=== PATIENT | male | born 1960 | race Caucasian/White ===

== ENCOUNTER 2023-01-01 09:22 | Day surgery (SDC) | payer OTHER, MEDICAID, SELFPAY ==
--- NOTE | 2023-01-01 | PATH_ITS ---
[facility] Accession Number: [id number] No. of containers..04 Tissue . 01 Material submitted: . PART A: colon - CECAL POLYP PART B: colon - TRANSVERSE COLON POLYP X3 PART C: colon - SIGMOID COLON POLYP X2 PART D: rectum - RECTAL POLYP . 01 Diagnosis: A. Cecum, Polypectomy: Colonic mucosa with no diagnostic abnormality, consistent with polypoid redundancy. Negative for dysplasia and malignancy. . B. Transverse Colon, Polypectomy x3: Tubular adenoma in 3 of 4 fragments. . C. Sigmoid Colon, Polypectomy x2: Tubular adenoma. Benign lymphoid aggregate. . D. Rectum, Polypectomy: Hyperplastic polyp. [facility] 01/06/2023 1611 Local . 01 Electronically signed: . Sandy Sorto MD, Pathologist NPI- [id number] . 01 Gross description: . Part A: CECAL POLYP: Received in formalin is 1 fragment(s) of hudson, soft tissue measuring 0.2 x 0.1 x 0.1 cm submitted entirely in 1 cassette(s) Part B: TRANSVERSE COLON POLYP X3: Received in formalin are 4 fragment(s) of hudson, soft tissue measuring 0.4 x 0.1 x 0.1 cm to 0.3 x 0.1 x 0.1 cm submitted entirely in 1 cassette(s) Part C: SIGMOID COLON POLYP X2: Received in formalin are 2 fragment(s) of hudson, soft tissue measuring 0.4 x 0.2 x 0.2 cm to 0.3 x 0.2 x 0.2 cm submitted entirely in 1 cassette(s) Part D: RECTAL POLYP: Received in formalin is 1 fragment(s) of hudson, soft tissue measuring 0.1 x 0.1 x 0.1 cm submitted entirely in 1 cassette(s) /CPE 01/02/2023 0620 Local . 01 Pathologist provided ICD-10: D12.3, D12.5, K63.5, K62.1 . 01 CPT . 182561, 238453, 739483, [id number] Specimen Comment: A courtesy copy of this report has been sent to [phone] Performed at: 01 [facility] [address] [place] [address], [place], [place] [id number] MD David Ewing MD Phone: [phone]
[2023-01-01 09:36] VITALS: BMI 25.7
[2023-01-01 09:40] VITALS: BP 149/96; PULSE 80; RESP 20; TEMP 36.7; O2SAT 97
[2023-01-01] MEDS: LACTATED RINGERS 1,000 ML 42 ML IV (09:45)
--- NOTE | 2023-01-01 10:11 | PM.HP.1 ---
History of Present Illness History of Present Illness Chief complaint: Colonoscopy Narrative: Tyler is a 62-year-old man here for colonoscopy. He has never had 1 before. No family history of colon cancer. He had a fit test that was negative about 3 years ago. Patient History Medical History (Updated 01/01/23 @ 10:11 by Cesar Ballard MD) Anxiety Family & Social History Social History: household members spouse Tobacco & Substance use: Smoking Status Never smoker alcohol intake current alcohol intake frequency 0-2 drinks per day Substance Use Type does not use Meds Home Medications and Allergies Home Medications Medication Instructions Recorded Confirmed Type peg 3350-electrolytes 236 240 ml PO Q10M #4,000 mL 12/01/22 Rx gram-22.74 gram-6.74 gram-5.86 gram solution (Golytely) sertraline 25 mg tablet 25 mg PO DAILY 01/01/23 01/01/23 History Allergies Allergy/AdvReac Type Severity Reaction Status Date / Time No Known Drug Allergies Allergy Verified 01/01/23 09:35 Exam Vital Signs (past 8 hours): - 01/01/23 09:40 Temperature 98.0 F Pulse Rate 80 Respiratory Rate 20 Blood Pressure 149/96 H Pulse Oximetry 97 Oxygen Delivery Method Room Air Oxygen Delivery Method Room Air Const General: healthy appearing Assessment & Plan Assessment and plan (1) Colon cancer screening: Status: Acute Plan Tyler is a 62-year-old man who is here for colonoscopy. We reviewed the risks and benefits and he would like to proceed. Time Spent With Patient Critical Care time: I spent a total of [] minutes of critical care time on this patient's care today; this time is exclusive of procedural time.
--- NOTE | 2023-01-01 10:50 | PM.OP.COLON ---
Operative Date/Time/Diagnoses Date of procedure: 01/01/23 Time of procedure: 10:50 Pre-op diagnosis: Colon cancer screening Post-op diagnosis: same Procedure & Clinicians Study performed: Colonoscopy Same procedure as scheduled: Yes Surgeon: Cesar Ballard Procedure Notes Procedure in detail: Surgeon: Cesar Ballard MD Anesthesia: Suzy Mercer REEL WINDER Procedure: The patient was brought to the endoscopy suite, placed in left lateral decubitus position. The patient was connected to monitoring devices. A time-out was performed. Sedation was administered. Once the patient was adequately sedated, a digital rectal exam was performed and was normal. The scope was then inserted and advanced to the cecum where the appendiceal orifice was identified and photographed. The scope was then slowly withdrawn over greater than 6 minutes. The mucosa was thoroughly inspected. There was a 5 mm polyp in the cecum removed with a cold snare. There were 3 small polyps, each about 5 mm, in the transverse colon removed with cold snare. There were 2 sigmoid polyps about 5 mm each removed with cold snare. There was a rectal polyp about 3 mm removed with cold snare. The scope was retroflexed in the rectum. No other abnormalities were seen. The scope was straightened and removed. The patient was awakened and brought to recovery. Scope withdrawal time: 21 minutes Sedation time: 28 minutes EBL: 5 mL Findings: 7 polyps as described above all between 3-5 mm Post-procedure Disposition: PACU
[2023-01-01 10:52] VITALS: BP 100/74; PULSE 85; RESP 14; TEMP 36.3; O2SAT 98
[2023-01-01 10:58] VITALS: BP 115/81; PULSE 83; RESP 18; O2SAT 97
[2023-01-01 11:02] VITALS: BP 118/84; PULSE 76; RESP 20; O2SAT 99
== END 2023-01-01 11:12 | disposition home or self-care (01) ==
PROVIDERS: PCP Family Medicine; Referring Provider Surgery; Visit Provider Surgery
PROC: 0DJD8ZZ Inspection of Lower Intestinal Tract, Via Natural or Artificial Opening Endoscopic (ICD-10-PCS; CPT 45378; principal; 2023-01-01 10:30)
DX: Z12.11 Encounter for screening for malignant neoplasm of colon (principal); D12.3 Benign neoplasm of transverse colon; D12.5 Benign neoplasm of sigmoid colon; K62.1 Rectal polyp
CPT/HCPCS: 45385; J2704